=== PATIENT | female | born 1950 | race Caucasian/White ===

== ENCOUNTER 2018-02-20 06:51 | Inpatient (IN) | payer MEDICARE, OTHER ==
[~2018-02-20] VITALS: Ht 154.9 cm; Wt 61.2 kg
[~2018-02-20 06:51] MED LIST: CEFAZOLIN SODIUM/DEXTROSE,ISO 50 ML IV ONE
[2018-02-20] MEDS ORDERED: CEFAZOLIN SODIUM/DEXTROSE,ISO 50 ML IV ONE (07:14)
[2018-02-20] MEDS ORDERED: ANESTHESIA TRAY IN PYXIS 1 EA TRAY MC ONE (08:28)
[2018-02-20] MEDS ORDERED: NS 0.9% IV STA (08:47)
[2018-02-20] MEDS ORDERED: TRANEXAMIC ACID IV STA (08:47)
[2018-02-20] MEDS ORDERED: BUPIVACAINE 0.25% 75 MG/30 ML VIAL ONE (09:35)
[2018-02-20] MEDS ORDERED: FENTANYL PF 100MCG/2ML AMPUL ONE ×2 (09:52→10:14)
[2018-02-20] MEDS ORDERED: MIDAZOLAM HCL 2 MG/2ML VIAL ONE (10:22)
[2018-02-20 11:00] VITALS: BP 160/74
--- NOTE | 2018-02-20 11:00 | NUR ---
RN MS NOTES RECEIVED PT FROM OR STAFF, PT IS AWAKE, ALERT, COMPLAINING OF PAIN AT THE RIGHT LEG S/P OPEN REPAIR OF RIGHT FEMUR BY DR. LORA, ASSISTED TO BED, MADE COMFORTABLE, AT BEDSIDE, VITAL SIGNS TAKEN AND RECORDED, ADMITTING MD TOLBERT SUGAR CANE FARM MANAGER INFORMED, AWAITING ADMITTING ORDERS, WILL COME TO SEE PT.
[2018-02-20] MEDS ORDERED: CARI350T PO (11:52)
[2018-02-20] MEDS ORDERED: [UNRECOGNIZED DRUG - CODE] PO (11:52)
[2018-02-20] MEDS ORDERED: LOVA40TA2 PO (11:52)
[2018-02-20] MEDS ORDERED: MAG HYDROX/AL HYDROX/SIMETH 30 ML UDC PO PRN ×2 (12:00)
[2018-02-20] MEDS ORDERED: MENTHOL/CETYLPYRD (CEPACOL) 1 LOZ LOZENGE MM PRN (12:00)
[2018-02-20] MEDS ORDERED: oxyCODONE/APAP (5/325 MG) 1 UDTAB TABLET PO PRN (12:00)
[2018-02-20] MEDS ORDERED: CARISOPRODOL 350 MG TABLET PO PRN (12:00)
[2018-02-20] MEDS ORDERED: ONDANSETRON HCL/PF 4 MG/2 ML VIAL IVP PRN (12:00)
[2018-02-20] MEDS ORDERED: ACETAMINOPHEN 325 MG TABLET PO PRN (12:00)
[2018-02-20] MEDS ORDERED: CLONIDINE HCL 0.1 MG TABLET PO PRN (12:00)
[2018-02-20] MEDS ORDERED: NALOXONE HCL 0.4 MG/ML AMPUL IV PRN (12:00)
[2018-02-20] MEDS ORDERED: oxyCODONE IR immediate release 5 MG PO PRN (12:00)
[2018-02-20] MEDS ORDERED: MAGNESIUM HYDROXIDE 30 ML UDC PO PRN ×2 (12:00)
[2018-02-20] MEDS ORDERED: BISACODYL SUPP (10 MG) 10 MG/SUPP.RECT SUPP.RECT RC PRN (12:00)
[2018-02-20] MEDS ORDERED: FENTANYL PF 100MCG/2ML AMPUL IV PRN ×2 (12:00)
[2018-02-20] MEDS ORDERED: TRAMADOL HCL 50 MG TABLET PO PRN (12:00)
[2018-02-20] MEDS ORDERED: HYDROCODONE/APAP 10/325MG 1 EA TABLET PO PRN (12:00)
[2018-02-20 12:30] VITALS: BP 165/102
--- NOTE | 2018-02-20 12:30 | NUR ---
RN MS NOTES PT IN BED, AWAKE, NOT IN DISTRESS, STILL COMPLAINING OF PAIN, OFFERED OTHER PAIN MEDICATION ORDERED BY MD, PT REFUSES, STATES THAT DEMEROL IS THE ONLY EFFECTIVE PAIN MED FOR HER, CHARGE NURSE AND PHARMACY INFORMED, DR. ALEXIS INFORMED, FENTANYL GIVEN FOR NOW, WILL REASSESS FOR PAIN.
[2018-02-20] MEDS ORDERED: MEPERIDINE HCL/PF 50 MG/ML DISP.SYRIN IM PRN (14:00)
--- NOTE | 2018-02-20 14:10 | NUR ---
RN MS NOTES RECEIVED ORDER FROM DR. ALEXIS FOR DEMEROL IM, PER PHARMACY, ONLY 2 VIALS ARE AVAILABLE AT THE HOSPITAL RIGHT NOW, DEMEROL IM GIVEN ORDERED, WILL REASSESS NEEDED.
[2018-02-20] MEDS ORDERED: HYDROMORPHONE INJ 2 MG/ML DISP.SYRIN SQ PRN (14:30)
[2018-02-20 16:00] VITALS: BP 116/62
[2018-02-20] MEDS: ONDANSETRON HCL/PF 4 MG/2 ML VIAL IVP PRN ×2 (16:39→20:59)
[2018-02-20] MEDS: diphenhydrAMINE HCL 25 MG CAPSULE PO PRN (16:39)
[2018-02-20] MEDS: IV LR 1000 ML 1,000 ML IV PRN (16:39)
[2018-02-20] MEDS: DOCUSATE SODIUM 100 MG CAPSULE PO SCH (17:00)
[2018-02-20] MEDS ORDERED: DOCUSATE SODIUM 100 MG CAPSULE PO SCH (17:00)
--- NOTE | 2018-02-20 17:00 | NUR ---
RN MS NOTES PT IN BED, STATES HER PAIN IS NOW 9/10, PT SAID SHE WOULD LIKE TO TRY DILAUDID SQ, SAID DILAUDID MAKES HER SICK BEFORE BUT STILL WANTS TO TRY IT, DILAUDID SQ GIVEN ORDERED, WITH EMILIA AND LENA, PT SEEN BY DR. ALEXIS AT BEDSIDE, PAIN MANAGEMENT PLAN DISCUSSED WITH PT, VERBALIZED UNDERSTANDING, WILL CONTINUE TO MONITOR PT.
[2018-02-20] MEDS ORDERED: SCOPOLAMINE HBR 1 EA PATCH.TD72 TD PRN (18:00)
[2018-02-20] MEDS ORDERED: BUTALB/APAP/CAFFEINE 1 EACH TABLET PO PRN (18:00)
--- NOTE | 2018-02-20 19:20 | NUR ---
MS RN NOTES RECEIVED PT IN BED, AWAKE, A/O X 4, VERBALLY RESPONSIVE. NO DISTRESS, NO SOB NOTED. RESPIRATION IS EVEN AND UNLABORED. RIGHT JUGULAR CENTRAL LINE, INTACT AND PATENT, NO S/S OF INFILTRATION NOTED. IVF INFUSING WELL. NO C/O PAIN OR DISCOMFORT AT THIS TIME. COMFORTABLE VERBALIZED. ICE PACK ON RIGHT THIGH IN PLACE. PT ON S/P OPEN REPAIR OF RIGHT FEMUR BY DR. LORA , WITH CLEAN AND INTACT DRESSING, NO ACTIVE BLEEDING NOTED. POST OP TEACHING RENDERED. ALL NEEDS ATTENDED AND MET. SAFETY PRECAUTIONS OBSERVED. CALL LIGHT WITHIN REACH. WILL CONT TO MONITOR.
[2018-02-20 19:48] VITALS: BP 124/55
[2018-02-20 20:00] VITALS: BP 124/55
[2018-02-20] MEDS: HYDROMORPHONE INJ 2 MG/ML DISP.SYRIN SQ PRN ×2 (20:21→23:42)
[2018-02-20] MEDS: PANTOPRAZOLE 40 MG TABLET.DR PO SCH (22:05)
--- NOTE | 2018-02-20 23:48 | NUR ---
Patient given incentive spirometer at bedside, aware of how to use the device, and stated will use it in the morning. Addendum: 02/20/18 at 2349 by TROY RUSHING RT Amended: Links added.
[2018-02-21] MEDS: ONDANSETRON HCL/PF 4 MG/2 ML VIAL IVP PRN (01:02)
[2018-02-21] MEDS: IV LR 1000 ML 1,000 ML IV PRN ×3 (03:00→21:30)
[2018-02-21] MEDS: HYDROMORPHONE INJ 2 MG/ML DISP.SYRIN SQ PRN ×6 (03:09→20:53)
--- NOTE | 2018-02-21 07:15 | NUR ---
RN NOTES PT IS RESTING IN BED, AWAKE AND ALERT. PT ON RA, RESPIRATIONS ARE EVEN AND UNLABORED. IV ON REJ INTACT AND RUNNING LR @ 100ML/HR. NO SIGNS OF DISTRESS NOTED. SAFETY MEASURES ARE IN PLACE, CALL LIGHT IS IN REACH. WILL CONTINUE TO MONITOR.
--- NOTE | 2018-02-21 07:18 | NUR ---
MS RN NOTES PT IN BED, AWAKE, A/O X 4, VERBALLY RESPONSIVE. NO DISTRESS, NO SOB NOTED. RESPIRATION IS EVEN AND UNLABORED. RIGHT JUGULAR CENTRAL LINE, INTACT AND PATENT, NO S/S OF INFILTRATION NOTED. IVF INFUSING WELL. ALL DUE MEDS GIVEN ORDERED. PAIN WELL MANAGED. COMFORTABLE VERBALIZED. ICE PACK ON RIGHT THIGH IN PLACE. PT ON S/P OPEN REPAIR OF RIGHT FEMUR BY DR. LORA , WITH CLEAN AND INTACT DRESSING, NO ACTIVE BLEEDING NOTED. ALL NEEDS ATTENDED AND MET. SAFETY PRECAUTIONS OBSERVED. CALL LIGHT WITHIN REACH. ENDORSED TO NEXT SHIFT FRO VINCE.
[2018-02-21] MEDS: diphenhydrAMINE HCL 25 MG CAPSULE PO PRN (07:55)
[2018-02-21 08:00] VITALS: BP 95/42
[2018-02-21 08:20] LABS: BASOPHILS % (AUTO) 0.7 % (0.0-2.0); EOSINOPHILS % (AUTO) 1.2 % (0.0-6.0); HEMATOCRIT 29 % (33-45); HEMOGLOBIN 10.1 g/dL (11.5-14.8); LYMPHOCYTES # (AUTO) 1.3 /CMM (0.8-4.8); LYMPHOCYTES % (AUTO) 25.8 % (20.0-44.0); MEAN CORPUSCULAR HGB CONC 35 g/dl (31.0-36.0); MEAN CORPUSCULAR VOLUME 99 fL (82-100); MONOCYTES # (AUTO) 0.7 /CMM (0.1-1.30); MONOCYTES % (AUTO) 13.1 % (2.0-12.0); NEUTROPHILS # (AUTO) 3.1 /CMM (1.8-8.9); NEUTROPHILS % (AUTO) 59.2 % (43.0-81.0); PLATELET COUNT (AUTO) 136 /CMM (150-450); RDW COEFFICIENT OF VARIATION 12.3 (11.5-15.0); RED BLOOD CELL COUNT(AUTO) 2.89 MIL/uL (4.0-5.2); WHITE BLOOD COUNT (AUTO) 5.2 K/uL (4.3-11.0)
[2018-02-21] MEDS: DOCUSATE SODIUM 100 MG CAPSULE PO SCH ×2 (08:22→16:31)
[2018-02-21 08:31] LABS: CALCIUM, SERUM 8.3 mg/dL (8.5-10.1); CREATININE 0.4 mg/dL (0.6-1.3); MAGNESIUM 1.8 mg/dL (1.8-2.4); PHOSPHORUS 2.9 mg/dL (2.5-4.9); POTASSIUM 3.7 mmol/L (3.5-5.1)
[2018-02-21] MEDS ORDERED: PANTOPRAZOLE 40 MG VIAL IV SCH (09:00)
[2018-02-21] MEDS: CARISOPRODOL 350 MG TABLET PO PRN ×2 (09:09→21:00)
[2018-02-21 16:00] VITALS: BP 95/42
--- NOTE | 2018-02-21 18:40 | NUR ---
RN NOTES PT IS AWAKE AND ALERT, RESTING COMFORTABLY IN BED. PT ON RA, RESPIRATIONS ARE EVEN AND UNLABORED. IV ON REJ INTACT AND RUNNING LR @ 100ML/HR. ALL MEDS WERE GIVEN ORDERED AND PT NEEDS MET. OROPEZA CATHETER IS INTACT AND DRAINING TO GRAVITY. NO SIGNS OF DISTRESS NOTED. SAFETY MEASURES ARE IN PLACE, CALL LIGHT IS IN REACH. WILL ENDORSE TO MANAGER CARDIAC RN FOR CONTINUITY OF CARE.
[2018-02-21 20:00] VITALS: BP 109/62
[2018-02-21] MEDS: ATORVASTATIN 40 MG TABLET PO SCH (21:29)
[2018-02-21] MEDS: PANTOPRAZOLE 40 MG TABLET.DR PO SCH (21:31)
[2018-02-21] MEDS ORDERED: TEMAZEPAM 15 MG CAPSULE PO PRN (22:00)
[2018-02-22] MEDS: HYDROMORPHONE INJ 2 MG/ML DISP.SYRIN SQ PRN ×6 (00:14→22:55)
--- NOTE | 2018-02-22 07:07 | NUR ---
RN NOTES PATIENT IN BED EYES CLOSED, RESPONSIVE TO VERBAL AND TACTILE STIMULI. NO ACUTE DISTRESS NOTED. BREATHING UNLABORED. IV ACCESS PATENT AND INTACT, NO REDNESS OR SWELLING NOTED. SAFETY MEASURES IN PLACE. CALL LIGHT WITHIN REACH. WILL CONTINUE TO MONITOR ACCORDINGLY.
[2018-02-22 07:59] LABS: BASOPHILS % (AUTO) 0.8 % (0.0-2.0); EOSINOPHILS % (AUTO) 1.3 % (0.0-6.0); HEMATOCRIT 26 % (33-45); LYMPHOCYTES # (AUTO) 1.2 /CMM (0.8-4.8); LYMPHOCYTES % (AUTO) 25.2 % (20.0-44.0); MEAN CORPUSCULAR HGB CONC 35 g/dl (31.0-36.0); MEAN CORPUSCULAR VOLUME 99 fL (82-100); MONOCYTES # (AUTO) 0.5 /CMM (0.1-1.30); MONOCYTES % (AUTO) 10.7 % (2.0-12.0); NEUTROPHILS # (AUTO) 3.1 /CMM (1.8-8.9); PLATELET COUNT (AUTO) 114 /CMM (150-450); RDW COEFFICIENT OF VARIATION 11.9 (11.5-15.0); RED BLOOD CELL COUNT(AUTO) 2.59 MIL/uL (4.0-5.2); WHITE BLOOD COUNT (AUTO) 4.9 K/uL (4.3-11.0)
[2018-02-22] MEDS: DOCUSATE SODIUM 100 MG CAPSULE PO SCH ×2 (08:55→16:29)
[2018-02-22] MEDS: CARISOPRODOL 350 MG TABLET PO PRN ×2 (09:01→21:55)
--- NOTE | 2018-02-22 10:10 | NUR ---
RN NOTES DRESSING CHANGED BY SAQIB GREENE ON THE RIGHT HIP.
[2018-02-22] MEDS: IV LR 1000 ML 1,000 ML IV PRN (16:25)
--- NOTE | 2018-02-22 18:24 | NUR ---
RN NOTES PATIENT IN BED ALERT ORIENTED X4. NO ACUTE DISTRESS NOTED. BREATHING UNLABORED. IV ACCESS PATENT AND INTACT, NO REDNESS OR SWELLING NOTED. DUE MEDICATION GIVEN, NO ASE NOTED. OROPEZA CATHETER IN PLACE, DRAINING WELL. SAFETY MEASURES IN PLACE. CALL LIGHT WITHIN REACH. WILL CONTINUE TO MONITOR ACCORDINGLY. WILL ENDORSE TO NIGHT NURSE FOR CONTINUITY OF CARE.
--- NOTE | 2018-02-22 19:50 | NUR ---
MS RN NOTE: PATIENT RESTING IN BED, NO ACUTE DISTRESS NOTED, FAMILY AT BEDSIDE. BREATHING EVEN AND UNLABORED, NO SOB NOTED. CENTRAL LINE TO RIGHT EJ, DISLODGE NO BLEEDING NOTED, TO REMOVE AND COVER WITH DRESSING. PATIENT COMPLAINS OF PAIN TO RIGHT HIP 10/10, DILAUDID 1.5MG SUBCUTANEOUS TO LESLIE GIVEN PER MD ORDER. BED LOCKED AND IN LOWEST POSITION, CALL LIGHT IN REACH. WILL CONTINUE TO MONITOR.
[2018-02-22] MEDS: ONDANSETRON HCL/PF 4 MG/2 ML VIAL IVP PRN (19:51)
[2018-02-22 20:00] VITALS: BP 94/55
--- NOTE | 2018-02-22 20:15 | NUR ---
MS MOLINA NOTE: CENTRAL LINE TO RIGHT EJ REMOVED, COVERED WITH GAUZE, PRESSURE APPLIED. SUTURES REMOVED WITHOUT COMPLICATIONS. CENTRAL LINE TIP INTACT. ZOFRAN IV NOT ADMINISTERED, WILL TRY TO START A NEW IV SITE. WILL CONTINUE TO MONITOR. Addendum: 02/22/18 at 2057 by MIA SAHU RN OROPEZA CATHETER IN PLACE, EMPTY AT THIS TIME.
[2018-02-22] MEDS: ATORVASTATIN 40 MG TABLET PO SCH (21:55)
[2018-02-22] MEDS: PANTOPRAZOLE 40 MG TABLET.DR PO SCH (21:55)
--- NOTE | 2018-02-22 22:00 | NUR ---
MS RN NOTE: PATIENT COMPLAINS OF RIGHT LEG/HIP PAIN, SOMA 700 MG ORAL GIVEN PER MD ORDER. WILL CONTINUE TO MONITOR.
--- NOTE | 2018-02-22 23:00 | NUR ---
MS RN NOTE: PATIENT COMPLAINS OF PAIN TO RIGHT HIP 08/07, DILAUDID 1.5MG SUBCUTANEOUS GIVEN TO MICHAEL PER MD ORDER. ASKED PATIENT IF WE CAN START A NEW IV LINE. PATIENT REFUSES NEW IV, STATES THAT SHE IS A HARD STICK AND DOES NOT WANT TO TRY. EXPLAIN RISK AND BENEFITS, BUT STILL REFUSES. WILL CONTINUE TO MONITOR.
[2018-02-23] MEDS: HYDROMORPHONE INJ 2 MG/ML DISP.SYRIN SQ PRN ×5 (02:05→15:56)
--- NOTE | 2018-02-23 02:10 | NUR ---
MS RN NOTE: PATIENT COMPLAINS OF PAIN TO RIGHT HIP 10/, DILAUDID 1.5MG SUBCUTANEOUS GIVEN TO LESLIE PER MD ORDER. WILL CONTINUE TO MONITOR.
--- NOTE | 2018-02-23 05:20 | NUR ---
MS RN NOTE: PATIENT COMPLAINS OF PAIN TO RIGHT HIP /, DILAUDID 1.5MG SUBCUTANEOUS GIVEN TO MICHAEL PER MD ORDER. WILL CONTINUE TO MONITOR.
--- NOTE | 2018-02-23 06:15 | NUR ---
MS RN NOTE: PATIENT RESTING IN BED, NO ACUTE DISTRESS NOTED. BREATHING EVEN AND UNLABORED, NO SOB NOTED. OROPEZA CATHETER IN PLACE, DRAINED 1100ML OF CLEAR YELLOW URINE. BED LOCKED AND IN LOWEST POSITION, CALL LIGHT IN REACH. WILL ENDORSE TO DAY NURSE TO CONTINUE WITH PLAN OF CARE.
--- NOTE | 2018-02-23 07:30 | NUR ---
RN MS NOTES PT IN BED, AWAKE, ALERT AND ORIENTED, WITH COMPLAINT OF RIGHT LEG PAIN 9/10, RESPIRATIONS NORMAL AND NOT LABORED, F/C INTACT, DRAINING WELL WITH CLEAR, YELLOW URINE, KEPT COMFORTABLE, CALL LIGHT WITHIN REACH.
[2018-02-23 08:00] VITALS: BP 100/52
[2018-02-23] MEDS: CARISOPRODOL 350 MG TABLET PO PRN (08:32)
[2018-02-23] MEDS: DOCUSATE SODIUM 100 MG CAPSULE PO SCH (09:00)
--- NOTE | 2018-02-23 11:58 | NUR ---
RN MS NOTES PT IN BED, AWAKE, ALERT AND ORIENTED, COMPLAINED OF RIGHT LEG PAIN 8/, PAIN MEDICATION GIVEN ORDERED, NEEDS ATTENDED, CALL LIGHT WITHIN REACH.
--- NOTE | 2018-02-23 12:04 | NUR ---
RN MS NOTES PT IN BED, AWAKE, ALERT AND ORIENTED, NOT IN DISTRESS, PT SEEN AND EXAMINED BY DIDI DRAFTER STRUCTURAL, DISCHARGE ORDER GIVEN, PT VERBALIZED UNDERSTANDING.
--- NOTE | 2018-02-23 16:50 | NUR ---
RN MS NOTES PT IN BED, AWAKE, ALERT AND ORIENTED, WITH COMPLAINT OF RIGHT LEG PAIN, PAIN MEDS GIVEN ORDERED, RESPIRATIONS NORMAL AND NOT LABORED, SEEN AND EXAMINED BY DIDI KNUCKLER, DISCHARGE ORDER GIVEN, DISCHARGE AND MEDICATION INSTRUCTIONS PROVIDED TO PT, VERBALIZED UNDERSTANDING, PRESCRIPTION FOR PAIN MED GIVEN TO PT, BELONGINGS ACCOUNTED FOR, PT SAID HER WILL BE AT HOME TO RECEIVE HER, PICKED UP BY 2 AMBULANCE PERSONNEL, LEFT VIA GUERNEY IN STABLE CONDITION.
== END 2018-02-23 16:46 | disposition home or self-care (01) | DRG 468 ==
LOC: DS 06:51 → MED 11:14
PROVIDERS: ADMIT Specialist; ATTEND Specialist
PROC: 0SWR0JZ Revision of Synthetic Substitute in Right Hip Joint, Femoral Surface, Open Approach (ICD-10-PCS; principal; 2018-02-20 09:00)
DX: S72.301K Unspecified fracture of shaft of right femur, subsequent encounter for closed fracture with nonunion (principal); D50.9 Iron deficiency anemia, unspecified; E78.5 Hyperlipidemia, unspecified; X58.XXXD Exposure to other specified factors, subsequent encounter; G43.909 Migraine, unspecified, not intractable, without status migrainosus; Z89.512 Acquired absence of left leg below knee; M40.00 Postural kyphosis, site unspecified; Z88.1 Allergy status to other antibiotic agents; G47.00 Insomnia, unspecified
CPT/HCPCS: 36415; 71045-TC; 80048-TC; 80061-TC; 83735-TC; 84100-TC; 85025-TC; 86850-TC; 86921-TC; 87081-TC; 88300-TC; A6209; A6402; C1713; J0690; J1100; J1170; J2175; J2250; J2405; J2704; J3010; J3490; J7030; J7120; Q0163; Z7610

== ENCOUNTER 2022-09-17 11:50 | Inpatient (IN) | payer MEDICARE, OTHER ==
[~2022-09-17] VITALS: Ht 154.9 cm; Wt 58.1 kg
[~2022-09-17 11:50] MED LIST changes: +CARI350T PO; -CEFAZOLIN SODIUM/DEXTROSE,ISO 50 ML IV ONE; +LOVA40TA2 PO; +[UNRECOGNIZED DRUG - CODE] PO
--- NOTE | 2022-09-18 14:50 | NUR ---
RN NOTE- PT ARRIVED VIA GURNEY FROM [facility] FOR RIGHT FEMUR FRACTURE/ FRACTURED HARDWARE. MD NOTIFIED OF ADMISSION. BEGIN ADMISSION PROCESS.
--- NOTE | 2022-09-18 14:51 | NUR ---
PIPELINE INSPECTOR NOTE 71 YO FEMALE, BROUGHT IN FROM [facility] WITH RIGHT FEMUR FRACTURE, HARDWARE MALFUNCTION. PT WITH MULTIPLE ALLERGIES INCLUDING PENICILIN AND MORPHINE. PT IS FULL CODE AND COVID NEGATIVE. PMHX CONSIST OF LEFT BKA, RIGHT FEMUR SURGERY WITH RODDING, AND HYPERTENSION. PT HAS HAD COVID VACCINES AND BOOSTERS BUT REFUSES PNEUMONIA AND FLU VACCS. ON PRESENTATION, A/OX4, INTERACTIVE, CALM, COMPLAINT NUMBER 10 PAIN TO RIGHT THIGH. STATES GIVEN DILAUDID BEFORE AND EFFECTIVE. CHEST CLEAR, BOWEL SOUND HYPOACTIVE AND POSITIVE. ON ROOM AIR. VS, BP 148/66, HR 83, RR 18, T 98.9, SAT 96% RA. OROPEZA CATHETER TO GRAVITY, DRAINING DARK YELLOW URINE. IV 20G TO LEFT HAND. DR MINAYA AT BEDSIDE TO ASSESS. ORTHO CONTACTED TO ASSESS. ORDERS RECEIVED AND COMPLIED WITH. PAIN MANAGEMENT, SIDE RAILS UP X4, BED LOCKED, CALL LIGHT WITHIN REACH. AT BEDSIDE. CONTINUE TO MONITOR AND ASSIST.
[2022-09-18] MEDS: HYDROMORPHONE INJ 2 MG/ML DISP.SYRIN IV PRN ×4 (15:42→22:18)
[2022-09-18 16:00] VITALS: BP 148/66
[2022-09-18] MEDS ORDERED: HYDROMORPHONE INJ 2 MG/ML DISP.SYRIN IV PRN (16:00)
[2022-09-18] MEDS ORDERED: ONDANSETRON HCL/PF 4 MG/2 ML VIAL IVP PRN (16:00)
[2022-09-18] MEDS ORDERED: ACETAMINOPHEN 325 MG TABLET PO PRN (16:00)
[2022-09-18] MEDS ORDERED: Z GUARD REMEDY 4 OZ OINT TP PRN (16:00)
[2022-09-18] MEDS: IV D5/0.45 NACL 1,000 ML IV PRN (16:15)
--- NOTE | 2022-09-18 18:45 | NUR ---
RN CLOSING NOTE PT AWAKE IN BED, A/OX4, INTERACTIVE AND COOPERATIVE. TOLERATING WELL ON ROOM AIR WITH NO S/S RESPIRATORY DISTRESS. PAIN MEDICATIONS ADMINISTERED ORDERED. CHANGED DILAUDID ORDER FROM Q4 TO Q3. PT NOW COMFORTABLE. L HAND #20 IV CLEAN, INTACT, AND INFUSING D5 1/2 NS @75 ML/HR. REGULAR DIET. PO INTAKE GOOD. ORTHO FOLLOWING. FEMUR X-RAY TAKEN. SAFETY MEASURES MAINTAINED: BED LOCKED AND IN LOWEST POSITION, SIDE RAILS UP X2. CALL LIGHT AND BED SIDE TABLE IN EASY REACH. WILL MONITOR PT ACCORDINGLY. ENDORSED TO FISCAL CLERK FOR VINCE.
[2022-09-18 20:00] VITALS: BP 117/65
--- NOTE | 2022-09-18 20:00 | NUR ---
RN OPENING NOTE RECEIVED PT AWAKE IN BED, A/OX4, INTERACTIVE AND COOPERATIVE. TOLERATING WELL ON ROOM AIR WITH NO S/S RESPIRATORY DISTRESS. IV ACCESS ON L HAND #20 IV CLEAN, INTACT, AND INFUSING D5 1/2 NS @75 ML/HR. SAFETY MEASURES MAINTAINED: BED LOCKED AND IN LOWEST POSITION, SIDE RAILS UP X2. CALL LIGHT AND BED SIDE TABLE IN EASY REACH. WILL MONITOR PT ACCORDINGLY. WILL CONTINUE TO MONITOR.
--- NOTE | 2022-09-18 22:18 | NUR ---
RN NOTES PATIENT IS COMPLAINING OF PAIN AT LEFT HIP, RATED PAIN SCALE 9/10. APPLIED COLD COMPRESS. GIVEN MORPHINE 2MG IV. WILL CONTINUE TO ASSESS.
[2022-09-19] MEDS: HYDROMORPHONE INJ 2 MG/ML DISP.SYRIN IV PRN ×6 (01:55→21:41)
[2022-09-19 06:45] LABS: BASOPHILS % (AUTO) 0.6 % (0.0-2.0); EOSINOPHILS % (AUTO) 3.4 % (0.0-6.0); HEMATOCRIT 32 % (33-45); HEMOGLOBIN 10.7 g/dL (11.5-14.8); LYMPHOCYTES # (AUTO) 0.8 K/uL (0.8-4.8); LYMPHOCYTES % (AUTO) 16.4 % (20.0-44.0); MEAN CORPUSCULAR HGB CONC 34 g/dl (31.0-36.0); MEAN CORPUSCULAR VOLUME 107 fL (82-100); MONOCYTES # (AUTO) 0.6 K/uL (0.1-1.30); MONOCYTES % (AUTO) 11.1 % (2.0-12.0); NEUTROPHILS # (AUTO) 3.5 K/uL (1.8-8.9); NEUTROPHILS % (AUTO) 68.5 % (43.0-81.0); PLATELET COUNT (AUTO) 147 K/uL (150-450); RED BLOOD CELL COUNT(AUTO) 2.98 MIL/uL (4.0-5.2); WHITE BLOOD COUNT (AUTO) 5.1 K/uL (4.3-11.0)
[2022-09-19 07:19] LABS: ALANINE AMINOTRANSFERASE 30 U/L (12-78); ALBUMIN 2.8 g/dL (3.4-5.0); ALKALINE PHOSPHATASE 49 U/L (46-116); ASPARTATE AMINOTRANSFERASE 18 U/L (15-37); BILIRUBIN,TOTAL 0.4 mg/dL (0.2-1.0); CALCIUM, SERUM 8.7 mg/dL (8.5-10.1); CARBON DIOXIDE 27 mmol/L (21-32); CHLORIDE 104 mmol/L (98-107); CREATININE 0.4 mg/dL (0.6-1.3); GLUCOSE 129 mg/dL (74-106); POTASSIUM 3.1 mmol/L (3.5-5.1); SODIUM SERUM 135 mmol/L (136-145); TOTAL PROTEIN, SERUM 5.7 g/dL (6.4-8.2)
--- NOTE | 2022-09-19 07:19 | NUR ---
RN CLOSING NOTE PT AWAKE IN BED, A/OX4, INTERACTIVE AND COOPERATIVE. TOLERATING WELL ON ROOM AIR WITH NO S/S RESPIRATORY DISTRESS. PAIN MEDICATIONS ADMINISTERED ORDERED. L HAND #20 IV CLEAN, INTACT, AND INFUSING D5 1/2 NS @75 ML/HR. DUE MEDS GIVEN. KEPT COMFORTABLE. SAFETY MEASURES MAINTAINED: BED LOCKED AND IN LOWEST POSITION, SIDE RAILS UP X2. CALL LIGHT AND BED SIDE TABLE IN EASY REACH. ENDORSED TO DAY SHIFT FOR VINCE.
[2022-09-19] MEDS: IV D5/0.45 NACL 1,000 ML IV PRN (07:42)
[2022-09-19 08:00] VITALS: BP 107/54
--- NOTE | 2022-09-19 08:09 | NUR ---
RN OPENING NOTE PT AWAKE IN BED, A/OX4, INTERACTIVE AND COOPERATIVE. TOLERATING ROOM AIR WITH NO S/S RESPIRATORY DISTRESS. PAIN MEDICATIONS ADMINISTERED ORDERED. L HAND #20 IV CLEAN, INTACT, AND INFUSING D5 1/2 NS @75 ML/HR. NO ORTHO EVAL YET. WILL CONTACT MD. PT STATED SHE DIDN'T SLEEP WELL LAST NIGHT. WILL ADDRESS WITH MD. SAFETY MEASURES MAINTAINED: BED LOCKED AND IN LOWEST POSITION, SIDE RAILS UP X2. CALL LIGHT AND BED SIDE TABLE IN EASY REACH. .
[2022-09-19 08:38] LABS: UREA NITROGEN, BLOOD 13 mg/dL (7-18)
[2022-09-19] MEDS ORDERED: POTASSIUM CL. PREMIX PERIPHER. 50 ML IV SCH (09:00)
[2022-09-19] MEDS ORDERED: [UNRECOGNIZED DRUG - CODE] PO (09:22)
[2022-09-19] MEDS: POTASSIUM CHLORIDE 20 MEQ TAB.PRT.SR PO SCH (10:37)
--- NOTE | 2022-09-19 10:40 | NUR ---
RN NOTE- DILAUDID 2 MG IVP GIVEN. IV INFILTRATED. REMOVED IV SITE.
[2022-09-19] MEDS: HYDROCODONE/APAP 5/325MG TABLET PO PRN ×2 (11:02→17:37)
--- NOTE | 2022-09-19 12:30 | NUR ---
RN NOTE- IV HAD INFILTRATED. REMOVED. ORDERED ML. ATTEMPTED ANOTHER. 22G INSERTED TO LFA. ONE EXTRA DOSE DILAUDID 2MG IVP ORDERED BY , COMPLYING
[2022-09-19] MEDS ORDERED: HYDROMORPHONE INJ 2 MG/ML DISP.SYRIN IV ONE (13:00)
--- NOTE | 2022-09-19 13:00 | NUR ---
RN NOTE- ML PLACED 18G MICHAEL
[2022-09-19 16:00] VITALS: BP 122/70
--- NOTE | 2022-09-19 18:59 | NUR ---
RN CLOSING NOTE PT AWAKE IN BED, A/OX4, INTERACTIVE AND COOPERATIVE. TOLERATING WELL ON ROOM AIR WITH NO S/S RESPIRATORY DISTRESS. PAIN MEDICATIONS ADMINISTERED ORDERED. PT NOW COMFORTABLE. REGULAR DIET. PO INTAKE GOOD. ORTHO FOLLOWING. FEMUR X-RAY TAKEN. PT W DVT LEFT FEMUR/POPLITEAL. HEPARIN GTT INITIATED. PT/INR ORDERED. CM TO TRY AND TRANSFER TO [facility]. SAFETY MEASURES MAINTAINED: BED LOCKED AND IN LOWEST POSITION, SIDE RAILS UP X2. CALL LIGHT AND BED SIDE TABLE IN EASY REACH. WILL MONITOR PT ACCORDINGLY. ENDORSED TO LEACH CELL OPERATOR FOR VINCE.
--- NOTE | 2022-09-19 20:00 | NUR ---
RN OPENING NOTE RECEIVED PT AWAKE IN BED, A/OX4, INTERACTIVE AND COOPERATIVE. TOLERATING WELL ON ROOM AIR WITH NO S/S RESPIRATORY DISTRESS. IV ACCESS ON R MIDLINE INTACT, AND INFUSING D5 1/2 NS @75 ML/HR. SAFETY MEASURES MAINTAINED: BED LOCKED AND IN LOWEST POSITION, SIDE RAILS UP X2. CALL LIGHT AND BED SIDE TABLE IN EASY REACH. WILL MONITOR PT ACCORDINGLY. WILL CONTINUE TO MONITOR.
[2022-09-19 20:52] VITALS: BP 137/71
--- NOTE | 2022-09-19 21:43 | NUR ---
RN NOTES PATIENT IS COMPLAINING OF PAIN AT RIGHT THIGH, DESCRIBED SHARP PAIN, RATED PAIN SCALE 9/10. GIVEN DILAUDID 2MG. KEPT COMFORTABLE. WILL REASSESS ACCORDINGLY.
[2022-09-19] MEDS ORDERED: HEPARIN SODIUM, PORCINE 5000 UNITS/1 ML VIAL IV ONE (22:30)
[2022-09-19] MEDS ORDERED: HEPARIN INFUSION/D5W 500 ML IV ONE (22:38)
--- NOTE | 2022-09-19 23:00 | NUR ---
RN NOTES PATIENT STARTED ON HEPARIN DRIP. HEPARIN 4800U 0.96ML IV BOLUS. FOLLOWED BY HEPARIN BAG INITIATED 1100U /HR, 22ML/H. TIME TO BE DRAWN PTT IS 0500AM, MD ORDERED. WILL MONITOR THE PATIENT.
[2022-09-19] MEDS: HEPARIN INFUSION/D5W 500 ML IV PRN (23:20)
[2022-09-20] MEDS: HYDROMORPHONE INJ 2 MG/ML DISP.SYRIN IV PRN ×8 (00:41→21:23)
--- NOTE | 2022-09-20 02:33 | NUR ---
TELERN PER LAB PT 11,9 INR 1.14. AT 1900 DRAW. PRIMARY RN NOTIFIED.
--- NOTE | 2022-09-20 07:47 | NUR ---
RN CLOSING NOTE PT AWAKE IN BED, A/OX4, INTERACTIVE AND COOPERATIVE. TOLERATING WELL ON ROOM AIR WITH NO S/S RESPIRATORY DISTRESS. PAIN MEDICATIONS ADMINISTERED ORDERED. PT NOW COMFORTABLE. HEPARIN DRIP INITIATED. PTT ORDERED. CM TO TRY AND TRANSFER TO [facility]. SAFETY MEASURES MAINTAINED: BED LOCKED AND IN LOWEST POSITION, SIDE RAILS UP X2. CALL LIGHT AND BED SIDE TABLE IN EASY REACH. WILL MONITOR PT ACCORDINGLY. ENDORSED TO DAY SHIFT FOR VINCE.
--- NOTE | 2022-09-20 07:49 | NUR ---
RN MS NOTES PT IN BED, AWAKE, ALERT AND ORIENTED, PAIN MEDICATION GIVEN BY AIRBRUSH ARTIST TECHNICAL NURSE FOR PAIN MANAGEMENT, NOT IN DISTRESS, ON HEPARIN DRIP, AWAITING LATEST PTT RESULT, NO S/S OF BLEEDING, CALL LIGHT WITHIN REACH, ALL NEEDS ATTENDED.
[2022-09-20 08:00] VITALS: BP 145/50
--- NOTE | 2022-09-20 08:20 | NUR ---
RN MS NOTES CALLED LAB TO FOLLOW UP ON PT'S PTT RESULT, SPOKE WITH GREGG, CURRENT PTT IS 78.2.
[2022-09-20] MEDS: POTASSIUM CHLORIDE 20 MEQ TAB.PRT.SR PO SCH (09:30)
--- NOTE | 2022-09-20 16:15 | NUR ---
RN MS NOTES PT IN BED, RESTING, PAIN MEDS GIVEN ORDERED, LATEST PTT IS 49.0 SECONDS, NO CHANGE NEEDED WITH CURRENT HEPARIN DRIP RATE OF 1000, NOTED WITH HEMATURIA IN OROPEZA BAG, DR. MINAYA INFORMED, ORDERS GIVEN, NOTED AND CARRIED OUT, AWAITING PT TRANSFER TO [facility] FOR HLOC, PER MD, PT TO CONTINUE ALL HOSPITAL MEDICATION INCLUDING HEPARIN DRIP.
[2022-09-20 17:56] LABS: BASOPHILS % (AUTO) 0.6 % (0.0-2.0); HEMATOCRIT 32 % (33-45); HEMOGLOBIN 10.6 g/dL (11.5-14.8); LYMPHOCYTES # (AUTO) 0.7 K/uL (0.8-4.8); LYMPHOCYTES % (AUTO) 14.2 % (20.0-44.0); MEAN CORPUSCULAR HGB CONC 33 g/dl (31.0-36.0); MEAN CORPUSCULAR VOLUME 107 fL (82-100); MONOCYTES # (AUTO) 0.4 K/uL (0.1-1.30); MONOCYTES % (AUTO) 8.6 % (2.0-12.0); NEUTROPHILS # (AUTO) 3.6 K/uL (1.8-8.9); NEUTROPHILS % (AUTO) 72.6 % (43.0-81.0); PLATELET COUNT (AUTO) 145 K/uL (150-450); RED BLOOD CELL COUNT(AUTO) 2.96 MIL/uL (4.0-5.2)
--- NOTE | 2022-09-20 18:42 | NUR ---
RN MS NOTES PT IN BED, AWAKE, ALERT AND ORIENTED, PAIN MEDICATION ADMINISTERED FOR PAIN MANAGEMENT, ON HEPARIN DRIP, PT SIGNED ALL CONSENTS, AWAITING FURTHER INSTRUCTIONS FROM MR. MCARTHUR AND REGARDING CONTINUING OR TRANSPORTING PT WITH ONGOING HEPARIN DRIP.
--- NOTE | 2022-09-20 19:38 | NUR ---
RN OPENING NOTES RECEIVE PT IN BED, AWAKE, WATCHING TV. AOx4, ABLE TO MAKE NEEDS KNOWN. ON RA AND TOLERATING WELL. NO SOB NOTED. NO S/SX OF RESPIRATORY DISTRESS NOTED. IV ACCESS IN MICHAEL MIDLINE RUNNING HEPARIN DRIP @ 1000 UNITS/HR. OROPEZA CATHETER IN PLACE. SAFETY PRECAUTIONS IN PLACE: BED IN LOWEST, LOCKED POSITION, SIDERAILS UPx2, AND BRAKES ON. TABLE AND CALL LIGHT WITHIN REACH. ALL NEEDS MET AT THIS TIME.
[2022-09-20] MEDS: HEPARIN INFUSION/D5W 500 ML IV PRN (20:00)
--- NOTE | 2022-09-20 21:23 | NUR ---
RN NOTES ADMINISTERED DILAUDID FOR PAIN PER MD ORDER. VS WNL.
--- NOTE | 2022-09-20 21:32 | NUR ---
DISCHARGE NOTES REPORT GIVEN TO THAIS AT [facility] 2119. PATIENT STABLE. REPORT GIVEN TO cab worker. BELONGINGS ACCOUNTED FOR. PAPERWORK ACCOUNTED FOR AND SIGNED. Addendum: 09/21/22 at 0018 by DAMASO BREWSTER RN PATIENT DISCHARGED WITH MICHAEL MIDLINE #18G RUNNING HEPARING @ 1000 UNITS/HOUR.
== END 2022-09-20 22:00 | disposition short-term general hospital (02) | DRG 534 ==
LOC: MED 09-18 14:34
PROVIDERS: ADMIT Internal Medicine; ATTEND Internal Medicine
PROC: 05H933Z Insertion of Infusion Device into Right Brachial Vein, Percutaneous Approach (ICD-10-PCS; principal; 2022-09-19)
DX: S72.91XA Unspecified fracture of right femur, initial encounter for closed fracture (principal); I82.402 Acute embolism and thrombosis of unspecified deep veins of left lower extremity; Z89.512 Acquired absence of left leg below knee; X58.XXXA Exposure to other specified factors, initial encounter; Y92.89 Other specified places as the place of occurrence of the external cause; Z96.653 Presence of artificial knee joint, bilateral; Y93.E1 Activity, personal bathing and showering; Z79.899 Other long term (current) drug therapy; E87.6 Hypokalemia; M61.9 Calcification and ossification of muscle, unspecified; R91.8 Other nonspecific abnormal finding of lung field
CPT/HCPCS: 36415; 71045-TC; 73552; 80053-TC; 85025-TC; 85730-TC; 87081-TC; 93307-TC; 93970-TC; G0378; J1170; J1644; J3480; J3490